=== PATIENT | female | born 1945 | race Caucasian/White ===

== ENCOUNTER 2023-09-24 23:11 | Inpatient (IN) | payer MEDICARE, OTHER ==
[~2023-09-24] VITALS: Ht 157.5 cm; Wt 54.4 kg
[2023-09-24] MEDS ORDERED: AMLO2.5T4 PO (23:31)
[2023-09-24] MEDS ORDERED: TRAM100T23 PO (23:31)
[2023-09-24] MEDS ORDERED: DULO20CA PO (23:31)
[2023-09-24] MEDS ORDERED: TRAZ-182 PO (23:31)
[2023-09-24] MEDS ORDERED: LOSA25TA3 PO (23:31)
[2023-09-24] MEDS ORDERED: FINA5TAB3 PO (23:31)
[2023-09-24] MEDS ORDERED: BIOT1TAB PO (23:31)
[2023-09-25 00:37] LABS: CALCIUM 8.8 mg/dL (8.5-10.1); POTASSIUM 3.2 mmol/L (3.5-5.1)
[2023-09-25 00:53] LABS: ALBUMIN 2.9 g/dL (3.4-5.0); BILIRUBIN,TOTAL 0.7 mg/dL (0.2-1.0); TOTAL PROTEIN, SERUM 7.1 g/dL (6.4-8.2)
[2023-09-25 01:07] LABS: ABG BASE EXCESS 0.8 mmol/L (-2.0-2.0); ABG HCO3 21.5 mmol/L (22.0-26.0); ABG PCO2 23.9 mmHg (35.0-48.0); ABG PH 7.572 (7.340-7.440); ABG PO2 76.6 mmHg (75.0-100.0); ABG SITE LEFT BRACHIAL; ABG TOTAL HEMOGLOBIN 11.7 G/dL (12.0-16.0); AaDO2 97.1 mmHg; COHb 1.4 % (0.0-3.9); MetHb 0.2 % (0.0-1.5); O2Hb 94.8 % (94.0-97.0)
[2023-09-25] MEDS ORDERED: POTASSIUM CHLORIDE 20 MEQ TAB.PRT.SR PO ONE (02:30)
[2023-09-25] MEDS ORDERED: ALPRAZOLAM 0.25 MG TABLET PO ONE (02:30)
[2023-09-25] MEDS ORDERED: POTASSIUM CHLORIDE 20 MEQ TAB.PRT.SR ONE (03:09)
[2023-09-25] MEDS ORDERED: ALPRAZOLAM 0.25 MG TABLET ONE (03:10)
[2023-09-25] MEDS ORDERED: LOPERAMIDE HCL 2 MG CAPSULE ONE (03:55)
[2023-09-25] MEDS ORDERED: LOPERAMIDE HCL 2 MG CAPSULE PO ONE (04:00)
[2023-09-25 04:55] LABS: BASOPHILS # (AUTO) 0.1 K/UL (0.0-0.2); BASOPHILS % (AUTO) 0.8 % (0.0-2.0); DIFFERENTIAL COMMENT 0; EOSINOPHILS % (AUTO) 0.2 % (0.0-7.0); HEMATOCRIT 35.3 % (31.2-41.9); LYMPHOCYTES # (AUTO) 0.4 K/uL (0.8-4.8); LYMPHOCYTES % (AUTO) 2.8 % (20.5-51.5); MEAN CORPUSCULAR HEMOGLOBIN 22.6 uug (24.7-32.8); MEAN CORPUSCULAR HGB CONC 31 g/dL (32.3-35.6); MEAN CORPUSCULAR VOLUME 72.6 fL (75.5-95.3); MONOCYTES # (AUTO) 1.1 K/uL (0.1-1.30); NEUTROPHILS # (AUTO) 12.1 K/uL (1.8-8.9); NEUTROPHILS % (AUTO) 88.2 % (38.5-71.5); PLATELET COUNT (AUTO) 214 K/uL (179-408); RED BLOOD CELL COUNT(AUTO) 4.86 MIL/uL (3.63-4.92); RED CELL DISTRIBUTION WIDTH 18.7 % (12.3-17.7); WHITE BLOOD COUNT (AUTO) 13.7 K/uL (3.8-11.8)
[2023-09-25] MEDS ORDERED: HYDROCODONE/APAP 5-325MG TABLET ONE (06:10)
[2023-09-25] MEDS ORDERED: MAGNESIUM HYDROXIDE 30 ML LIQUID UDC PO PRN (06:15)
[2023-09-25] MEDS ORDERED: ZOLPIDEM 5 MG TABLET PO PRN (06:15)
[2023-09-25] MEDS ORDERED: DIPHENOXYLATE HCL/ATROP SULF TABLET PO PRN (06:15)
[2023-09-25] MEDS ORDERED: ONDANSETRON 4 MG/2 ML VIAL IV PRN (06:15)
[2023-09-25] MEDS ORDERED: HYDROCODONE/APAP 5-325MG TABLET PO ONE (06:15)
[2023-09-25] MEDS ORDERED: REMEDY ESSENTIAL ZINC PASTE 113 GM TP PRN (06:15)
[2023-09-25 07:07] VITALS: BP 93/40; TEMP 98.2; O2SAT 95
[2023-09-25 08:00] VITALS: BP 81/33; TEMP 98; O2SAT 95
[2023-09-25 08:11] LABS: BASOPHILS % (AUTO) 0.4 % (0.0-2.0); EOSINOPHILS % (AUTO) 0.1 % (0.0-7.0); HEMATOCRIT 30.7 % (31.2-41.9); HEMOGLOBIN 9.7 g/dL (10.9-14.3); LYMPHOCYTES % (AUTO) 8.1 % (20.5-51.5); MEAN CORPUSCULAR HEMOGLOBIN 22.7 uug (24.7-32.8); MEAN CORPUSCULAR HGB CONC 31 g/dL (32.3-35.6); MEAN CORPUSCULAR VOLUME 72.3 fL (75.5-95.3); MONOCYTES # (AUTO) 1.3 K/uL (0.1-1.30); MONOCYTES % (AUTO) 10.6 % (0.0-11.0); NEUTROPHILS # (AUTO) 9.8 K/uL (1.8-8.9); NEUTROPHILS % (AUTO) 80.8 % (38.5-71.5); PLATELET COUNT (AUTO) 223 K/uL (179-408); RED BLOOD CELL COUNT(AUTO) 4.25 MIL/uL (3.63-4.92); RED CELL DISTRIBUTION WIDTH 18.7 % (12.3-17.7); WHITE BLOOD COUNT (AUTO) 12.1 K/uL (3.8-11.8)
[2023-09-25 08:14] LABS: DIFFERENTIAL COMMENT 1
[2023-09-25 08:19] LABS: THYROID STIMULATING HORMONE 1.007 mIU/mL (0.358-3.740)
[2023-09-25 08:43] LABS: ALBUMIN 2.7 g/dL (3.4-5.0); BILIRUBIN,TOTAL 0.5 mg/dL (0.2-1.0); CALCIUM 8.6 mg/dL (8.5-10.1); CREATININE 1.2 mg/dL (0.6-1.3); MAGNESIUM 2.2 mg/dL (1.8-2.4); PHOSPHOROUS 4.3 mg/dL (2.5-4.9); POTASSIUM 3.8 mmol/L (3.5-5.1); TOTAL PROTEIN, SERUM 6.4 g/dL (6.4-8.2)
[2023-09-25] MEDS: ENOXAPARIN SODIUM 40 MG/0.4 ML DISP.SYRIN SQ SCH (09:21)
[2023-09-25] MEDS: PANTOPRAZOLE SODIUM 40 MG VIAL IV SCH (09:21)
[2023-09-25] MEDS ORDERED: ASPIRIN EC 325 MG TABLET.DR PO ONE (09:24)
[2023-09-25 09:49] LABS: IRON, SERUM 17 ug/dL (50-175)
[2023-09-25 11:30] VITALS: BP 105/43; O2SAT 92
[2023-09-25] MEDS ORDERED: IV NORMAL SALINE 250 ML IV ONE (14:38)
[2023-09-25] MEDS ORDERED: IOHEXOL 300MG/ML 100 ML INFUS..BTL ONE (14:38)
[2023-09-25] MEDS ORDERED: SWABABLE VALVE TRANSFER SET EA MC ONE (14:38)
[2023-09-25] MEDS ORDERED: OMEP40CA21 PO (14:51)
[2023-09-25] MEDS ORDERED: DULO60CA45 PO (14:51)
[2023-09-25] MEDS ORDERED: AMLO-212 PO (14:51)
[2023-09-25] MEDS ORDERED: FINA5TAB11 PO (14:51)
[2023-09-25] MEDS ORDERED: LORA0.5T48 PO (14:51)
[2023-09-25] MEDS ORDERED: TRAZ-257 PO (14:51)
[2023-09-25] MEDS ORDERED: TRAM50TA2 PO (14:51)
[2023-09-25] MEDS ORDERED: LOSA100T31 PO (14:51)
[2023-09-25] MEDS ORDERED: ROPI0.255 PO (14:51)
[2023-09-25] MEDS: ACETAMINOPHEN 325 MG TABLET PO PRN ×2 (15:50→20:26)
[2023-09-25 16:20] VITALS: BP 104/46; TEMP 102.8; O2SAT 93
[2023-09-25 17:38] LABS: *BILIRUBIN,URIN NEGATIVE (NEGATIVE); *BLOOD, URINE 1+ (NEGATIVE); *CLARITY,URINE CLOUDY (CLEAR); *COLOR,URINE YELLOW (YELLOW); *KETONES,URINE NEGATIVE (NEGATIVE); *PROTEIN,URINE 2+ (NEGATIVE); *UROBILINOGEN,URINE 0.2 E.U./dl (NORMAL); LEUKOCYTE ESTERASE ,URINE 2+ (NEGATIVE); NITRITE, URINE NEGATIVE (NEGATIVE); UGLUCOSE NEGATIVE (NEGATIVE)
[2023-09-25] MEDS: IV NS 1000 ML 1,000 ML IV PRN (17:56)
[2023-09-25] MEDS ORDERED: CEFEPIME HCL 1 G in IV DEXTROSE 5% 50 ML IV SCH ×2 (18:00→21:00)
[2023-09-25 19:00] VITALS: BP 101/38; TEMP 98.2; O2SAT 96
[2023-09-25] MEDS: LORAZEPAM 1 MG TABLET PO SCH (20:24)
[2023-09-25] MEDS: ropiniROLE 0.5 MG TABLET PO SCH (20:25)
[2023-09-25] MEDS: HYDROCODONE/APAP 5-325MG TABLET PO PRN (21:00)
[2023-09-25 23:05] LABS: BACTERIA,URINE MANY /HPF (NONE SEEN); SQUAMOUS EPITHELIAL CELL,UR FEW /HPF (NONE SEEN); WBC,URINE 50-80 /HPF (0-3)
[2023-09-26] VITALS (9 sets, daily range): BP systolic 92–110; BP diastolic 34–52; TEMP 97.9–102.6; O2SAT 87–96
[2023-09-26 07:58] LABS: BASOPHILS % (AUTO) 0.4 % (0.0-2.0); HEMATOCRIT 28.6 % (31.2-41.9); HEMOGLOBIN 9.1 g/dL (10.9-14.3); LYMPHOCYTES # (AUTO) 0.4 K/uL (0.8-4.8); LYMPHOCYTES % (AUTO) 3.5 % (20.5-51.5); MEAN CORPUSCULAR HEMOGLOBIN 22.9 uug (24.7-32.8); MEAN CORPUSCULAR HGB CONC 32 g/dL (32.3-35.6); MEAN CORPUSCULAR VOLUME 72.1 fL (75.5-95.3); MONOCYTES # (AUTO) 1.1 K/uL (0.1-1.30); MONOCYTES % (AUTO) 10.6 % (0.0-11.0); NEUTROPHILS # (AUTO) 9.2 K/uL (1.8-8.9); NEUTROPHILS % (AUTO) 85.5 % (38.5-71.5); PLATELET COUNT (AUTO) 178 K/uL (179-408); RED BLOOD CELL COUNT(AUTO) 3.97 MIL/uL (3.63-4.92); RED CELL DISTRIBUTION WIDTH 18.4 % (12.3-17.7); WHITE BLOOD COUNT (AUTO) 10.7 K/uL (3.8-11.8)
[2023-09-26 07:59] LABS: DIFFERENTIAL COMMENT 1
[2023-09-26] MEDS: IV NS 1000 ML 1,000 ML IV PRN ×2 (08:33→15:46)
[2023-09-26 08:52] LABS: ALANINE AMINOTRANSFERASE 10 U/L (14-59); ALBUMIN 2.6 g/dL (3.4-5.0); ALKALINE PHOSPHATASE 60 U/L (50-136); ASPARTATE AMINOTRANSFERASE 18 U/L (15-37); BILIRUBIN,TOTAL 0.3 mg/dL (0.2-1.0); CARBON DIOXIDE 24 mmol/L (21-32); CHLORIDE 106 mmol/L (98-107); CREATININE 1.1 mg/dL (0.6-1.3); GLUCOSE 116 mg/dL (74-106); MAGNESIUM 2.1 mg/dL (1.8-2.4); PHOSPHOROUS 2.3 mg/dL (2.5-4.9); POTASSIUM 3.7 mmol/L (3.5-5.1); SODIUM SERUM 139 mmol/L (136-145); TOTAL PROTEIN, SERUM 6.6 g/dL (6.4-8.2); UREA NITROGEN, BLOOD 14 mg/dL (7-18)
[2023-09-26] MEDS: DULOXETINE 60 MG CAPSULE.DR PO SCH (08:54)
[2023-09-26] MEDS: PANTOPRAZOLE SODIUM 40 MG VIAL IV SCH (08:54)
[2023-09-26] MEDS: HYDROCODONE/APAP 5-325MG TABLET PO PRN (08:54)
[2023-09-26] MEDS: ASPIRIN EC 81 MG TABLET.DR PO SCH (08:54)
[2023-09-26] MEDS: ropiniROLE 0.5 MG TABLET PO SCH ×3 (08:54→16:55)
[2023-09-26] MEDS: ENOXAPARIN SODIUM 40 MG/0.4 ML DISP.SYRIN SQ SCH (09:08)
[2023-09-26 09:46] LABS: CALCIUM 8.5 mg/dL (8.5-10.1)
[2023-09-26] MEDS: CEFEPIME HCL 1 G in IV DEXTROSE 5% 50 ML IV SCH ×2 (10:45→21:00)
[2023-09-26] MEDS ORDERED: POTASSIUM PHOSPHATE MM 7.5 MMOL in IV NORMAL SALINE 97.5 ML IV ONE ×2 (14:00→15:00)
[2023-09-26] MEDS: METRONIDAZOLE 500 MG/NS 100ML 500 MG in PREMIXED 1 EACH IV SCH ×2 (15:11→22:16)
[2023-09-26] MEDS: ACETAMINOPHEN 325 MG TABLET PO PRN (21:00)
[2023-09-26] MEDS: LORAZEPAM 1 MG TABLET PO SCH (21:00)
[2023-09-26 21:11] LABS: *OCCULT BLOOD STOOL NEGATIVE (NEGATIVE)
[2023-09-27] VITALS (7 sets, daily range): BP systolic 97–130; BP diastolic 38–60; TEMP 98–99.5; O2SAT 80–98
[2023-09-27] MEDS: HYDROCODONE/APAP 5-325MG TABLET PO PRN ×2 (02:45→22:50)
[2023-09-27] MEDS: METRONIDAZOLE 500 MG/NS 100ML 500 MG in PREMIXED 1 EACH IV SCH ×3 (05:02→21:33)
[2023-09-27] MEDS: ropiniROLE 0.5 MG TABLET PO SCH ×3 (09:15→16:13)
[2023-09-27] MEDS: ASPIRIN EC 81 MG TABLET.DR PO SCH (09:15)
[2023-09-27] MEDS: DULOXETINE 60 MG CAPSULE.DR PO SCH (09:15)
[2023-09-27] MEDS: ENOXAPARIN SODIUM 40 MG/0.4 ML DISP.SYRIN SQ SCH (09:20)
[2023-09-27] MEDS: PANTOPRAZOLE SODIUM 40 MG TABLET.DR PO SCH (09:54)
[2023-09-27] MEDS: LOPERAMIDE HCL 2 MG CAPSULE PO PRN (19:56)
[2023-09-27] MEDS: LORAZEPAM 1 MG TABLET PO SCH (20:48)
[2023-09-27] MEDS ORDERED: CEFEPIME HCL 1 G in IV DEXTROSE 5% 50 ML IV SCH (21:00)
[2023-09-27] MEDS: IV NS 1000 ML 1,000 ML IV PRN (21:30)
[2023-09-28] VITALS (7 sets, daily range): BP systolic 108–138; BP diastolic 49–56; TEMP 98.1–98.8; O2SAT 94–99
[2023-09-28] MEDS: METRONIDAZOLE 500 MG/NS 100ML 500 MG in PREMIXED 1 EACH IV SCH ×3 (05:40→20:40)
[2023-09-28] MEDS: PANTOPRAZOLE SODIUM 40 MG TABLET.DR PO SCH (06:07)
[2023-09-28 07:35] LABS: BASOPHILS # (AUTO) 0.1 K/UL (0.0-0.2); BASOPHILS % (AUTO) 0.9 % (0.0-2.0); EOSINOPHILS # (AUTO) 0.2 K/uL (0.0-0.7); EOSINOPHILS % (AUTO) 1.6 % (0.0-7.0); LYMPHOCYTES # (AUTO) 1.2 K/uL (0.8-4.8); MEAN CORPUSCULAR HEMOGLOBIN 23.1 uug (24.7-32.8); MEAN CORPUSCULAR HGB CONC 32 g/dL (32.3-35.6); MEAN CORPUSCULAR VOLUME 71.9 fL (75.5-95.3); MONOCYTES # (AUTO) 1.1 K/uL (0.1-1.30); MONOCYTES % (AUTO) 10.1 % (0.0-11.0); NEUTROPHILS # (AUTO) 8.4 K/uL (1.8-8.9); NEUTROPHILS % (AUTO) 76.4 % (38.5-71.5); PLATELET COUNT (AUTO) 186 K/uL (179-408); RED BLOOD CELL COUNT(AUTO) 3.89 MIL/uL (3.63-4.92); RED CELL DISTRIBUTION WIDTH 18.5 % (12.3-17.7)
[2023-09-28] MEDS ORDERED: LEVALBUTEROL HCL 1.25 MG/0.5 ML NEB NEB PRN (07:45)
[2023-09-28 07:56] LABS: DIFFERENTIAL COMMENT 1
[2023-09-28 07:57] LABS: CALCIUM 8.5 mg/dL (8.5-10.1); CARBON DIOXIDE 23 mmol/L (21-32); CHLORIDE 106 mmol/L (98-107); CREATININE 0.7 mg/dL (0.6-1.3); GLUCOSE 98 mg/dL (74-106); MAGNESIUM 2.3 mg/dL (1.8-2.4); PHOSPHOROUS 2.2 mg/dL (2.5-4.9); POTASSIUM 3.6 mmol/L (3.5-5.1); SODIUM SERUM 138 mmol/L (136-145); UREA NITROGEN, BLOOD 11 mg/dL (7-18)
[2023-09-28] MEDS: DULOXETINE 60 MG CAPSULE.DR PO SCH (08:35)
[2023-09-28] MEDS: ENOXAPARIN SODIUM 40 MG/0.4 ML DISP.SYRIN SQ SCH (08:36)
[2023-09-28] MEDS: ropiniROLE 0.5 MG TABLET PO SCH ×3 (08:36→15:54)
[2023-09-28] MEDS: ASPIRIN EC 81 MG TABLET.DR PO SCH (08:37)
[2023-09-28] MEDS: ALBUTEROL SULFATE 2.5 MG/3 ML NEBU NEB PRN (09:58)
[2023-09-28] MEDS: LOPERAMIDE HCL 2 MG CAPSULE PO PRN (10:54)
[2023-09-28] MEDS: CEFEPIME HCL 1 G in IV DEXTROSE 5% 50 ML IV SCH ×2 (11:00→21:42)
[2023-09-28 13:20] LABS: BAND % (MANUAL) 23 % (0-10); BASOPHILS % (MANUAL) 1 % (0-2); LYMPHOCYTES % (MANUAL) 5 % (20-40); METAMYELOCYTES % 6 % (0-1); MONOCYTES % (MANUAL) 7 % (2-10); NEUTROPHILS % (MANUAL) 58 % (42-75)
[2023-09-28 13:21] LABS: ANISOCYTOSIS 1+; PLATELET ESTIMATE ADEQUATE
[2023-09-28] MEDS ORDERED: NEUTRA PHOS PACKET PO ONE (15:30)
[2023-09-28] MEDS ORDERED: IV NS 1000 ML 1,000 ML IV PRN (15:30)
[2023-09-28] MEDS: CHOLESTYRAMINE/ASPARTAME (LIGHT) 4 G/PKT PACKET PO SCH ×2 (15:53→20:39)
[2023-09-28] MEDS: LORAZEPAM 1 MG TABLET PO SCH (20:39)
[2023-09-28] MEDS: HYDROCODONE/APAP 5-325MG TABLET PO PRN (23:55)
[2023-09-29] VITALS (11 sets, daily range): BP systolic 103–140; BP diastolic 46–75; TEMP 97.9–99.1; O2SAT 90–99
[2023-09-29] MEDS: LOPERAMIDE HCL 2 MG CAPSULE PO PRN ×2 (04:52→21:00)
[2023-09-29] MEDS: ACETAMINOPHEN 325 MG TABLET PO PRN ×3 (04:52→22:41)
[2023-09-29] MEDS: METRONIDAZOLE 500 MG/NS 100ML 500 MG in PREMIXED 1 EACH IV SCH ×2 (05:37→14:01)
[2023-09-29] MEDS: PANTOPRAZOLE SODIUM 40 MG TABLET.DR PO SCH (06:23)
[2023-09-29 07:02] LABS: CALCIUM 8.5 mg/dL (8.5-10.1); CARBON DIOXIDE 25 mmol/L (21-32); CHLORIDE 108 mmol/L (98-107); CREATININE 0.7 mg/dL (0.6-1.3); GLUCOSE 100 mg/dL (74-106); PHOSPHOROUS 2.2 mg/dL (2.5-4.9); POTASSIUM 3.4 mmol/L (3.5-5.1); SODIUM SERUM 140 mmol/L (136-145); UREA NITROGEN, BLOOD 10 mg/dL (7-18)
[2023-09-29] MEDS: ALBUTEROL SULFATE 2.5 MG/3 ML NEBU NEB PRN ×2 (08:47→16:41)
[2023-09-29] MEDS: ropiniROLE 0.5 MG TABLET PO SCH ×3 (09:01→16:10)
[2023-09-29] MEDS: DULOXETINE 60 MG CAPSULE.DR PO SCH (09:02)
[2023-09-29] MEDS: ASPIRIN EC 81 MG TABLET.DR PO SCH (09:02)
[2023-09-29] MEDS: ENOXAPARIN SODIUM 40 MG/0.4 ML DISP.SYRIN SQ SCH (09:14)
[2023-09-29] MEDS: CHOLESTYRAMINE/ASPARTAME (LIGHT) 4 G/PKT PACKET PO SCH ×2 (09:14→21:00)
[2023-09-29] MEDS: CEFEPIME HCL 1 G in IV DEXTROSE 5% 50 ML IV SCH (09:22)
[2023-09-29] MEDS ORDERED: POTASSIUM CHLORIDE 10 MEQ TAB.PRT.SR PO SCH (10:45)
[2023-09-29] MEDS: POTASSIUM CHLORIDE 10 MEQ TAB.PRT.SR PO SCH ×2 (10:53→13:00)
[2023-09-29] MEDS: FUROSEMIDE 40 MG/4 ML VIAL IV SCH (10:58)
[2023-09-29] MEDS ORDERED: NEUTRA PHOS PACKET PO ONE (16:00)
[2023-09-29] MEDS: HYDROCODONE/APAP 5-325MG TABLET PO PRN (20:59)
[2023-09-29] MEDS: levoFLOXacin 500 MG TABLET PO SCH (20:59)
[2023-09-29] MEDS: LORAZEPAM 1 MG TABLET PO SCH (22:28)
[2023-09-29] MEDS: METRONIDAZOLE 500 MG TABLET PO SCH (22:28)
[2023-09-30] VITALS (11 sets, daily range): BP systolic 108–150; BP diastolic 47–92; TEMP 98–99.3; O2SAT 93–97
[2023-09-30] MEDS: TRAZODONE 50 MG TABLET PO SCH ×2 (02:07→20:06)
[2023-09-30] MEDS: METRONIDAZOLE 500 MG TABLET PO SCH ×3 (06:26→21:21)
[2023-09-30] MEDS: PANTOPRAZOLE SODIUM 40 MG TABLET.DR PO SCH (06:26)
[2023-09-30 07:42] LABS: CALCIUM 8.7 mg/dL (8.5-10.1); CARBON DIOXIDE 27 mmol/L (21-32); CHLORIDE 106 mmol/L (98-107); CREATININE 0.6 mg/dL (0.6-1.3); GLUCOSE 100 mg/dL (74-106); PHOSPHOROUS 2.3 mg/dL (2.5-4.9); SODIUM SERUM 141 mmol/L (136-145); UREA NITROGEN, BLOOD 7 mg/dL (7-18)
[2023-09-30 08:08] LABS: BASOPHILS % (AUTO) 0.5 % (0.0-2.0); EOSINOPHILS # (AUTO) 0.2 K/uL (0.0-0.7); EOSINOPHILS % (AUTO) 1.8 % (0.0-7.0); HEMOGLOBIN 9.6 g/dL (10.9-14.3); LYMPHOCYTES # (AUTO) 0.8 K/uL (0.8-4.8); LYMPHOCYTES % (AUTO) 9.1 % (20.5-51.5); MEAN CORPUSCULAR HEMOGLOBIN 22.4 uug (24.7-32.8); MEAN CORPUSCULAR HGB CONC 32 g/dL (32.3-35.6); MEAN CORPUSCULAR VOLUME 70.4 fL (75.5-95.3); NEUTROPHILS # (AUTO) 6.8 K/uL (1.8-8.9); NEUTROPHILS % (AUTO) 77.6 % (38.5-71.5); PLATELET COUNT (AUTO) 268 K/uL (179-408); RED BLOOD CELL COUNT(AUTO) 4.26 MIL/uL (3.63-4.92); RED CELL DISTRIBUTION WIDTH 18.4 % (12.3-17.7); WHITE BLOOD COUNT (AUTO) 8.7 K/uL (3.8-11.8)
[2023-09-30 08:21] LABS: DIFFERENTIAL COMMENT 1
[2023-09-30] MEDS: FUROSEMIDE 40 MG/4 ML VIAL IV SCH (08:44)
[2023-09-30] MEDS: DULOXETINE 60 MG CAPSULE.DR PO SCH (08:44)
[2023-09-30] MEDS: ropiniROLE 0.5 MG TABLET PO SCH ×3 (08:44→17:39)
[2023-09-30] MEDS: ASPIRIN EC 81 MG TABLET.DR PO SCH (08:44)
[2023-09-30] MEDS: CHOLESTYRAMINE/ASPARTAME (LIGHT) 4 G/PKT PACKET PO SCH ×2 (08:45→20:06)
[2023-09-30] MEDS: ENOXAPARIN SODIUM 40 MG/0.4 ML DISP.SYRIN SQ SCH (08:46)
[2023-09-30] MEDS: ALBUTEROL SULFATE 2.5 MG/3 ML NEBU NEB PRN ×2 (08:57→15:18)
[2023-09-30] MEDS ORDERED: POTASSIUM CHLORIDE 10 MEQ TAB.PRT.SR PO SCH (09:30)
[2023-09-30] MEDS ORDERED: POTASSIUM CHLORIDE 20 MEQ TAB.PRT.SR PO ONE (09:45)
[2023-09-30] MEDS ORDERED: NEUTRA PHOS PACKET PO ONE (15:15)
[2023-09-30] MEDS: HYDROCODONE/APAP 5-325MG TABLET PO PRN (17:44)
[2023-09-30] MEDS: LORAZEPAM 1 MG TABLET PO SCH (20:06)
[2023-09-30] MEDS: levoFLOXacin 500 MG TABLET PO SCH (20:06)
[2023-09-30] MEDS ORDERED: TRAZODONE 100 MG TABLET PO PRN (21:15)
[2023-09-30] MEDS: LOPERAMIDE HCL 2 MG CAPSULE PO PRN (21:17)
[2023-10-01] VITALS (7 sets, daily range): BP systolic 109–151; BP diastolic 45–59; TEMP 98–98.6; O2SAT 94–98
[2023-10-01] MEDS: HYDROCODONE/APAP 5-325MG TABLET PO PRN ×2 (00:33→23:11)
[2023-10-01] MEDS: ZOLPIDEM 5 MG TABLET PO PRN ×2 (01:29→23:12)
[2023-10-01] MEDS: METRONIDAZOLE 500 MG TABLET PO SCH ×3 (05:24→23:12)
[2023-10-01] MEDS: PANTOPRAZOLE SODIUM 40 MG TABLET.DR PO SCH (06:05)
[2023-10-01 07:41] LABS: CALCIUM 8.6 mg/dL (8.5-10.1); CARBON DIOXIDE 32 mmol/L (21-32); CHLORIDE 103 mmol/L (98-107); CREATININE 0.7 mg/dL (0.6-1.3); GLUCOSE 106 mg/dL (74-106); PHOSPHOROUS 2.7 mg/dL (2.5-4.9); POTASSIUM 3.2 mmol/L (3.5-5.1); SODIUM SERUM 140 mmol/L (136-145); UREA NITROGEN, BLOOD 10 mg/dL (7-18)
[2023-10-01] MEDS: ropiniROLE 0.5 MG TABLET PO SCH ×3 (08:34→17:34)
[2023-10-01] MEDS: FUROSEMIDE 40 MG/4 ML VIAL IV SCH (08:34)
[2023-10-01] MEDS: ASPIRIN EC 81 MG TABLET.DR PO SCH (08:34)
[2023-10-01] MEDS: DULOXETINE 60 MG CAPSULE.DR PO SCH (08:34)
[2023-10-01] MEDS: CHOLESTYRAMINE/ASPARTAME (LIGHT) 4 G/PKT PACKET PO SCH ×2 (08:35→21:00)
[2023-10-01] MEDS: ENSURE ENLIVE (VAN) 240 ML LIQUID PO SCH (08:35)
[2023-10-01] MEDS: ENOXAPARIN SODIUM 40 MG/0.4 ML DISP.SYRIN SQ SCH (08:42)
[2023-10-01] MEDS ORDERED: POTASSIUM CHLORIDE 20 MEQ TAB.PRT.SR PO ONE ×2 (09:45→10:30)
[2023-10-01] MEDS: LOPERAMIDE HCL 2 MG CAPSULE PO PRN (13:19)
[2023-10-01] MEDS: LORAZEPAM 1 MG TABLET PO SCH (20:54)
[2023-10-01] MEDS: levoFLOXacin 500 MG TABLET PO SCH (20:55)
[2023-10-01] MEDS: TRAZODONE 50 MG TABLET PO SCH (20:55)
[2023-10-02 04:50] VITALS: BP 136/39; TEMP 98.2; O2SAT 94
[2023-10-02] MEDS: PANTOPRAZOLE SODIUM 40 MG TABLET.DR PO SCH (06:25)
[2023-10-02] MEDS: METRONIDAZOLE 500 MG TABLET PO SCH (06:25)
[2023-10-02 06:56] LABS: CALCIUM 8.6 mg/dL (8.5-10.1); CARBON DIOXIDE 30 mmol/L (21-32); CHLORIDE 105 mmol/L (98-107); CREATININE 0.7 mg/dL (0.6-1.3); GLUCOSE 103 mg/dL (74-106); POTASSIUM 3.2 mmol/L (3.5-5.1); SODIUM SERUM 141 mmol/L (136-145); UREA NITROGEN, BLOOD 10 mg/dL (7-18)
[2023-10-02 08:12] VITALS: BP 133/59; TEMP 98; O2SAT 94
[2023-10-02] MEDS ORDERED: POTASSIUM CHLORIDE 20 MEQ TAB.PRT.SR PO ONE (08:15)
[2023-10-02] MEDS: ENSURE ENLIVE (VAN) 240 ML LIQUID PO SCH (08:46)
[2023-10-02] MEDS: DULOXETINE 60 MG CAPSULE.DR PO SCH (08:46)
[2023-10-02] MEDS: ASPIRIN EC 81 MG TABLET.DR PO SCH (08:46)
[2023-10-02] MEDS: ropiniROLE 0.5 MG TABLET PO SCH (08:46)
[2023-10-02] MEDS: ENOXAPARIN SODIUM 40 MG/0.4 ML DISP.SYRIN SQ SCH (08:47)
[2023-10-02] MEDS: CHOLESTYRAMINE/ASPARTAME (LIGHT) 4 G/PKT PACKET PO SCH (08:51)
[2023-10-02] MEDS: LOPERAMIDE HCL 2 MG CAPSULE PO PRN (08:51)
[2023-10-02] MEDS ORDERED: FUROSEMIDE 40 MG TABLET PO SCH (09:00)
[2023-10-02] MEDS ORDERED: FURO40TA5 PO (09:19)
[2023-10-02] MEDS ORDERED: LEVO500T90 PO (09:19)
[2023-10-02] MEDS ORDERED: ASPI-618 PO (09:19)
[2023-10-02] MEDS ORDERED: LOPE2CAP40 PO (09:19)
[2023-10-02] MEDS ORDERED: METR500T PO (09:19)
[2023-10-02] MEDS ORDERED: PANT40TA49 PO (09:19)
[2023-10-02 12:00] VITALS: BP 148/60; TEMP 98.9; O2SAT 95
== END 2023-10-02 13:30 | disposition home health service (06) | DRG 871 ==
LOC: ER 23:13 → TELE3 09-25 05:51 → MEDSURG3 09-27 13:00 → TELE3 09-29 09:19 → MEDSURG3 10-02 08:40
PROVIDERS: ADMIT Nurse Practitioner Acute Care; ATTEND Internal Medicine
DX: A41.9 Sepsis, unspecified organism (principal); I21.A1 Myocardial infarction type 2; I50.33 Acute on chronic diastolic (congestive) heart failure; N10 Acute pyelonephritis; E44.0 Moderate protein-calorie malnutrition; K57.32 Diverticulitis of large intestine without perforation or abscess without bleeding; I31.39 Other pericardial effusion (noninflammatory); D68.59 Other primary thrombophilia; N39.0 Urinary tract infection, site not specified; Z68.35 Body mass index [BMI] 35.0-35.9, adult; E66.9 Obesity, unspecified; Z68.30 Body mass index [BMI] 30.0-30.9, adult; K52.9 Noninfective gastroenteritis and colitis, unspecified; D50.9 Iron deficiency anemia, unspecified; R65.20 Severe sepsis without septic shock; I27.20 Pulmonary hypertension, unspecified; I08.2 Rheumatic disorders of both aortic and tricuspid valves; Z74.09 Other reduced mobility; Z87.891 Personal history of nicotine dependence; I44.7 Left bundle-branch block, unspecified; I11.0 Hypertensive heart disease with heart failure; M19.90 Unspecified osteoarthritis, unspecified site; G89.29 Other chronic pain; K44.9 Diaphragmatic hernia without obstruction or gangrene; Z90.710 Acquired absence of both cervix and uterus; Z82.49 Family history of ischemic heart disease and other diseases of the circulatory system; Z98.890 Other specified postprocedural states
CPT/HCPCS: 36415; 36600; 70030-TC; 70450; 71045; 82378; 83550; 83605; 83735; 84100; 84443; 84484; 85025; 85610; 87040; 93005; 93307; 94640; 94664; A4663; C1758; C9113; G0378; J0692; J1650; J1940; J2405; J3490; J7040; Q9967